=== PATIENT | male | born 1990 | race Caucasian/White ===

== ENCOUNTER → 2023-01-31 | Day surgery (SDC) | payer BC ==
[~2023-01-31] MED LIST: LACTATED RINGER'S 1,000 ML ONE; LIDOCAINE HCL 2% LOCAL INJ 5 ML SDV VIAL INJ ONE; METOCLOPRAMIDE HCL 10 MG/2ML VIAL ONE; OMEPRAZOLE40 MG PO; PROPOFOL IV EMULSION 10 MG/ML 20 ML VIAL ONE; PROPOFOL IV EMULSION 150 ML IV ONE
[2023-01-31 08:10] VITALS: BP 103/69; PULSE 74; RESP 18; O2SAT 98
== END | disposition home or self-care (01) ==
LOC: OR 05:47
PROVIDERS: ATTEND Internal Medicine Gastroenterology
DX: K22.10 Ulcer of esophagus without bleeding (principal); K29.50 Unspecified chronic gastritis without bleeding; K21.00 Gastro-esophageal reflux disease with esophagitis, without bleeding; Z71.3 Dietary counseling and surveillance; Z71.89 Other specified counseling; Z68.29 Body mass index [BMI] 29.0-29.9, adult
CPT/HCPCS: 43239; C9113; J2001; J2704 ×2; J2765; J7121